=== PATIENT | male | born 1980 | race Caucasian/White ===

== ENCOUNTER 2022-03-26 12:43 | Emergency (ER) | payer SELFPAY ==
--- NOTE | ~2022-03-26 | XR_ITS ---
EXAMINATION: XR LUMBOSACRAL SPINE CLINICAL INFORMATION: Back pain COMPARISON: None TECHNIQUE: Three views of the lumbosacral spine. FINDINGS: No fracture or destructive process. There is minor disc space narrowing at the lumbosacral junction. Alignment is preserved. XR/XR lumbar spine 2-3V IMPRESSION: No acute findings.
[2022-03-26 14:21] VITALS: BP 127/80; PULSE 100; RESP 18; TEMP 37.2; O2SAT 98; BMI 23.6
--- NOTE | 2022-03-26 14:22 | ED_ITS ---
HPI - Back Pain/Injury General Chief Complaint: Back Pain/Injury Stated Complaint: body aches pain in l leg Time Seen by Provider: 03/26/22 17:17 Related Data Previous Rx's Medication Instructions Recorded naproxen 500 mg tablet (Naprosyn) 500 mg PO BID PRN PAIN #20 tabs 03/26/22 oxycodone 5 mg tablet 5 mg PO Q6H PRN pain #15 tabs 03/26/22 Allergies Allergy/AdvReac Type Severity Reaction Status Date / Time No Known Allergies Allergy Unverified 02/04/20 17:15 [No Known Allergies*] [facility] Social History Social History Advance Directives: No Advance Directives Information Provided: No Physical Exam Vital Signs: Vital Signs: Last Vital Signs Temp 98.9 F 03/26/22 14:21 Pulse 100 03/26/22 14:21 Resp 18 03/26/22 14:21 BP 127/80 03/26/22 14:21 Pulse Ox 98 03/26/22 14:21 BMI result Body Mass Index 23.6 Course Reevaluation(s) Reevaluation #1: Low back pain going down left leg. He feels the pain radiating to the left leg, over the past 3 weeks he has had this pain multiple times, Neurologically intact, no urinary or fecal incontinence Time: 14:23 Medications Administered Discontinued Medications Generic Name Dose Route Start Last Admin Trade Name Freq PRN Reason Stop Dose Admin Cyclobenzaprine HCl 10 mg 03/26/22 14:23 03/26/22 17:27 Cyclobenzaprine Hcl 10 Mg Tablet PO 03/26/22 14:24 10 mg ONCE ONE Administration Ketorolac Tromethamine 60 mg 03/26/22 14:23 03/26/22 17:28 Ketorolac Tromethamine 60 Mg/2 Ml Vial IM 03/26/22 14:24 60 mg ONCE ONE Administration Discharge Plan Discharge Clinical Impression: Sciatica Patient Disposition: Home, Self-Care Instructions: Sciatica (ED) Additional Instructions: Follow-up with [facility] [phone] Prescriptions: New naproxen [Naprosyn] 500 mg tablet 500 mg PO BID PRN (Reason: PAIN) Qty: 20 0RF oxycodone 5 mg tablet 5 mg PO Q6H PRN (Reason: pain) Qty: 15 0RF Rx Instructions: partial filing upon pt request; Partial Fill upon patient request. Stand Alone Forms: Work/School Release Discharge Date/Time: 03/26/22 18:55
--- NOTE | 2022-03-26 17:17 | ED.BACK ---
HPI - Back Pain/Injury General Chief Complaint: Back Pain/Injury Stated Complaint: body aches pain in l leg Time Seen by Provider: 03/26/22 17:17 Source: patient Mode of arrival: ambulatory Limitations: no limitations History of Present Illness HPI Narrative: This is a 41 years old male presented to the emergency department complaining of lower back pain radiating to the left lower extremity. Denies any weakness any numbness, denies any loss of urine. He is fully ambulatory to the emergency department. The pain has been ongoing on for year intermittently. MD elicited complaint: back pain Pertinent past history: prior back pain Onset (ago): year(s) Timing: constant Severity: moderate Similar Symptoms Previously: Yes Quality: sharp Location: lumbar spine Radiation: other (left lower extremity) Exacerbating factors: none Relieving factors: none Associated symptoms: denies other symptoms Related Data Previous Rx's Medication Instructions Recorded naproxen 500 mg tablet (Naprosyn) 500 mg PO BID PRN PAIN #20 tabs 03/26/22 oxycodone 5 mg tablet 5 mg PO Q6H PRN pain #15 tabs 03/26/22 Allergies Allergy/AdvReac Type Severity Reaction Status Date / Time No Known Allergies Allergy Unverified 02/04/20 17:15 [No Known Allergies*] Review of Systems Review of Systems: Yes all other systems are reviewed and are negative Cardiovascular: Cardiovascular: Denies syncope Respiratory: Respiratory: Reports no additional respiratory complaints Gastrointestinal: Gastrointestinal: Reports no additional gastrointestinal complaints Musculoskeletal: Musculoskeletal: Reports no additional musculoskeletal complaints Neurologic: Reports system reviewed and no additional complaints, except as documented, Denies syncope and Denies focal weakness Psychiatric: Psychiatric: Reports no additional psychiatric complaints [facility] Social History Social History Advance Directives: No Advance Directives Information Provided: No Physical Exam Vital Signs: Vital Signs: Last Vital Signs Temp 98.9 F 03/26/22 14:21 Pulse 100 03/26/22 14:21 Resp 18 03/26/22 14:21 BP 127/80 03/26/22 14:21 Pulse Ox 98 03/26/22 14:21 BMI result Body Mass Index 23.6 Const: Other: He looks well is not toxic appearing General: cooperative and healthy appearing HEENT: Head: Yes normal to inspection General nose exam: Normal external nose present Face and sinus: Yes normal facial exam Mouth: Normal oral and palatal mucosa present Throat: Yes posterior oropharynx normal Neck: Neck: Yes normal visual inspection and Yes full ROM Chest: Chest palpation & inspection: normal inspection of the chest Resp: Effort & Inspection: normal respiratory effort Auscultation: clear to auscultation bilaterally Cardio: Jugular venous distension: no JVD Rate: regular rate Rhythm: regular rhythm GI: Inspection: Yes normal to inspection Palpation (GI): Soft to palpation, not firm, nontender and no guarding Back/Spine/Pelvis: Other: He has tenderness in the LS spine he has normal reflexes in the lower extremity, he has no deficit in strength or sensation Skin: General skin exam: no rashes or lesions noted Neuro: Other: His gait is stable is able to ambulate, no deficit motor or nor deficit in sensation Medications Administered Discontinued Medications Generic Name Dose Route Start Last Admin Trade Name Freq PRN Reason Stop Dose Admin Cyclobenzaprine HCl 10 mg 03/26/22 14:23 03/26/22 17:27 Cyclobenzaprine Hcl 10 Mg Tablet PO 03/26/22 14:24 10 mg ONCE ONE Administration Ketorolac Tromethamine 60 mg 03/26/22 14:23 03/26/22 17:28 Ketorolac Tromethamine 60 Mg/2 Ml Vial IM 03/26/22 14:24 60 mg ONCE ONE Administration MDM - Back Pain/Injury MDM Narrative Medical decision making narrative: In summary the patient presented with a sciatic and no red flag present will discharge home with the lumbar spine exercise and analgesia Discharge Plan Discharge Clinical Impression: Sciatica Patient Disposition: Home, Self-Care Instructions: Sciatica (ED) Additional Instructions: Follow-up with [facility] [phone] Prescriptions: New naproxen [Naprosyn] 500 mg tablet 500 mg PO BID PRN (Reason: PAIN) Qty: 20 0RF oxycodone 5 mg tablet 5 mg PO Q6H PRN (Reason: pain) Qty: 15 0RF Rx Instructions: partial filing upon pt request; Partial Fill upon patient request. Stand Alone Forms: Work/School Release Discharge Date/Time: 03/26/22 18:55
--- OUTSIDE RECORDS SUMMARY | 2022-03-26 17:23 | XMS_ITS | Continuity of Care Document ---
:1980 Author Organization [facility] Address [address] [place] [address]- Care Team Providers Name Role Phone Not on Staff, PCP Primary Care Physician Unavailable Encounter [facility] Date(s): 02/13/21 - 02/13/[address] [address]- Encounter Diagnosis Foreign body of right eye (Final) - 02/13/21 Discharge Disposition: A-D/C Home Attending Physician: Thad TREVIÑO, Toni Wells Admitting Physician: Thad TREVIÑO, Toni Wells Referring Physician: Not on Staff, Referring MD Allergies, Adverse Reactions, Alerts Substance Reaction Severity Status NKA Active Medications Benadryl 25 mg oral capsule 1 capsule = 25 mg, By Mouth, 3 times a day, PRN for itching, # 30 capsule, 0 Refills, Maintenance, Capsule Start Date: 01/20/13 Status: Orderedcitalopram 10 mg oral tablet 1 tablet = 10 mg, By Mouth, Daily in AM, # 14 tablet, 2 Refills, Maintenance, Tablet Start Date: 10/09/11 Stop Date: 11/20/11 Status: Orderedpermethrin 5% topical cream 1 application, Topically, Once, # 60 Gm, 0 Refills, Soft Stop, Cream Start Date: 01/20/13 Status: Ordered Problem List Condition Effective Dates Status Health Status Informant Depression(Confirmed) Active Vital Signs Most recent to oldest [Reference Range]: 1 2 Oxygen Saturation [94-100 %] 100 % 99 % (02/13/21 9:12 AM) (02/13/21 8:54 AM) Pulse Rate [55-90 bpm] 88 bpm 76 bpm (02/13/21 9:12 AM) (02/13/21 8:54 AM) Blood Pressure [90-138/55-84 mm Hg] 128/77 mm Hg (02/13/21 9:12 AM) Respiratory Rate [16-30 br/min] 18 br/min (02/13/21 9:12 AM) Temperature [96.8-100.4 DegF] 98.0 DegF (02/13/21 9:12 AM) Mode of Delivery (Oxygen) Room air Room air (02/13/21 9:12 AM) (02/13/21 8:54 AM) Blood pressure sites Arm, left (02/13/21 9:12 AM) Temperature Route Oral (02/13/21 9:12 AM)
[2022-03-26] MEDS: Cyclobenzaprine HCl 10 MG TABLET PO (17:27)
[2022-03-26] MEDS: Ketorolac Tromethamine 60 MG/2 ML VIAL IM (17:28)
--- NOTE | 2022-03-26 17:29 | PC.NURSE ---
PT MOVED INTO [facility]OT EXAM ROOM 1. EVALUATED BY DR HERNANDEZ. MEDICATED ORDERED. WILL REASSESS AND DISCHARGE SOON POSSIBLE
== END 2022-03-26 18:55 | disposition home or self-care (01) ==
PROVIDERS: Emergency Provider Emergency Medicine
DX: M54.42 Lumbago with sciatica, left side (principal)
CPT/HCPCS: 72100; 96372; 99282; 99284; J1885